=== PATIENT | male | born 1975 | race African-American/Black ===

== ENCOUNTER 2018-02-25 09:02 | Day surgery (SDC) | payer BC ==
[~2018-02-25 09:02] MED LIST: Sensorcaine 0.25% 10 ML ONE
[2018-02-25] MEDS ORDERED: Versed 2 MG/2 ML Injection IV ONE (09:03)
[2018-02-25] MEDS ORDERED: DIPRIVAN 200 MG/20 ML IV ONE (09:03)
[2018-02-25] MEDS ORDERED: SUBLIMAZE 250 MCG/5 ML IV ONE (09:03)
[2018-02-25] MEDS ORDERED: Quelicin Fliptop 200 MG/10 ML IV ONE (09:03)
[2018-02-25] MEDS ORDERED: Zemuron 100 MG/10 ML IV ONE (09:03)
[2018-02-25] MEDS ORDERED: Lactated Ringers 1,000 ML IV ONE (09:45)
[2018-02-25] MEDS ORDERED: Lactated Ringers 1,000 ML IV SCH (10:00)
[2018-02-25] MEDS ORDERED: KEFZOL 1 GM ONE (13:13)
[2018-02-25 14:56] VITALS: BP 141/98; PULSE 72; O2SAT 97
--- NOTE | 2018-02-26 07:41 | OP ---
SURGERY DATE/TIME: 02/25/2018 1249 PREOPERATIVE DIAGNOSIS: Pilonidal cyst disease. POSTOPERATIVE DIAGNOSIS: Pilonidal cyst disease. PROCEDURE: Pilonidal cystectomy. SURGEON: Abelardo Quesada M.D. ANESTHESIA: General prone position. COMPLICATIONS: None. CONDITION: Stable. INDICATION: The patient has pilonidal cyst disease was scheduled for elective surgical intervention. DESCRIPTION OF PROCEDURE: He was taken to surgery. Prone position. There were at least three major sinuses. The whole area was elliptically excised down to the fascia. There were no residual tracks. It was packed. Findings discussed with the in the waiting room. Instructions were given.
== END 2018-02-25 15:22 | disposition home or self-care (01) ==
LOC: SDC 09:02
PROVIDERS: ATTEND Surgery
DX: L05.91 Pilonidal cyst without abscess (principal); I10 Essential (primary) hypertension; F41.9 Anxiety disorder, unspecified; F32.9 Major depressive disorder, single episode, unspecified; Z79.899 Other long term (current) drug therapy
CPT/HCPCS: 87070; 88304; 94250; J0330; J0690; J2250; J2704; J3010